=== PATIENT | male | born 1995 | race Two or more races ===

== ENCOUNTER 2017-01-13 14:24 | Emergency (ER) | payer SELFPAY ==
[~2017-01-13] VITALS: Ht 167.6 cm; Wt 50.3 kg
[2017-01-13 14:45] VITALS: BP 146/79
== END 2017-01-13 15:45 | disposition home or self-care (01) ==
LOC: ER 14:24
DX: S16.1XXA Strain of muscle, fascia and tendon at neck level, initial encounter (principal); S39.012A Strain of muscle, fascia and tendon of lower back, initial encounter; V49.9XXA Car occupant (driver) (passenger) injured in unspecified traffic accident, initial encounter; Y93.89 Activity, other specified; Y99.8 Other external cause status; Y92.89 Other specified places as the place of occurrence of the external cause

== ENCOUNTER 2017-01-13 16:06 | Emergency (ER) | payer SELFPAY ==
[~2017-01-13] VITALS: Ht 167.6 cm; Wt 50.3 kg
[2017-01-13 19:52] VITALS: BP 111/80
== END 2017-01-13 19:54 | disposition home or self-care (01) ==
LOC: ER 16:32
DX: G44.209 Tension-type headache, unspecified, not intractable (principal); M54.5 Low back pain; V43.62XA Car passenger injured in collision with other type car in traffic accident, initial encounter; Y93.89 Activity, other specified; Y92.89 Other specified places as the place of occurrence of the external cause; Y99.8 Other external cause status
CPT/HCPCS: 70450; 72100